=== PATIENT | female | born 1970 | race Caucasian/White ===

== ENCOUNTER → 2024-03-09 16:31 | Outpatient (REF) | payer BC, SELFPAY | LOC: RAD 16:31 | PROVIDERS: ATTENDING PHYSICIAN Internal Medicine Geriatric Medicine | DX: R06.2 Wheezing (principal); J98.4 Other disorders of lung | CPT/HCPCS: 71250 ==

== ENCOUNTER → 2024-06-08 10:15 | Outpatient (REF) | payer BC, SELFPAY | LOC: CLAB 10:15 | PROVIDERS: ATTENDING PHYSICIAN Otolaryngology | DX: J38.1 Polyp of vocal cord and larynx (principal) | CPT/HCPCS: 88305 ==

== ENCOUNTER → 2024-08-30 17:09 | Outpatient (REF) | payer BC, SELFPAY | LOC: RAD 17:09 | PROVIDERS: ATTENDING PHYSICIAN Internal Medicine Geriatric Medicine | DX: Z00.00 Encounter for general adult medical examination without abnormal findings (principal); G95.9 Disease of spinal cord, unspecified; R61 Generalized hyperhidrosis; M51.26 Other intervertebral disc displacement, lumbar region; M79.604 Pain in right leg; R29.898 Other symptoms and signs involving the musculoskeletal system; E55.9 Vitamin D deficiency, unspecified; Z13.89 Encounter for screening for other disorder; R91.8 Other nonspecific abnormal finding of lung field | CPT/HCPCS: 71250 ==

== ENCOUNTER → 2025-07-24 16:10 | Outpatient (REF) | payer BC, SELFPAY | LOC: RAD 16:10 | PROVIDERS: ATTENDING PHYSICIAN Nurse Practitioner Adult Health; FAMILY PHYSICIAN Internal Medicine Geriatric Medicine | DX: S16.1XXA Strain of muscle, fascia and tendon at neck level, initial encounter (principal); S39.012A Strain of muscle, fascia and tendon of lower back, initial encounter; M54.6 Pain in thoracic spine | CPT/HCPCS: 72050; 72072; 72110 ==